=== PATIENT | female | born 1985 | race Caucasian/White ===

== ENCOUNTER 2017-08-25 11:52 | Emergency (ER) | payer SELFPAY ==
[2017-08-25 12:04] VITALS: BMI 20.5
--- NOTE | 2017-08-25 14:22 | PDOC ---
History of Present Illness - General History Source: Patient Exam Limitations: No Limitations - History of Present Illness Initial Comments: 08/25/17 14:23 31 y/o F with no PMHx presents to the ED sent by PCP with tachycardia. Patient reports a cough since last week, with some associated chest discomfort. She currently reports minimal chest pain at rest. At PCP, EKG showed a rate of 128 bpm, so PCP told her to go to the ED for further workup. She states that she becomes very anxious when she goes to the doctor. Patient denies fever, chills, runny nose. Denies nausea, vomiting, diarrhea, abdominal pain. Denies recent weight change, swelling. Denies recent travel. <Usha Moura - Last Filed: 08/25/17 14:23> <Nilesh Serna - Last Filed: 08/25/17 18:44> - General Chief Complaint: Respiratory Stated Complaint: COUGH (PCP SENT) Time Seen by Provider: 08/25/17 13:01 Past History <Usha Moura - Last Filed: 08/25/17 14:23> - Suicide/Smoking/Psychosocial Hx Smoking History: Current some day smoker Have you smoked in the past 12 months: No Information on smoking cessation initiated: No <Nilesh Serna - Last Filed: 08/25/17 18:44> - Past Medical History Allergies/Adverse Reactions: Allergies Allergy/AdvReac Type Severity Reaction Status Date / Time No Known Allergies Allergy Verified 08/25/17 12:00 Home Medications: Ambulatory Orders Doxycycline Monohydrate [Mondoxyne Nl] 100 mg PO BID #14 capsule 08/25/17 Review of Systems - Review of Systems Comments:: 08/25/17 14:23 A complete review of 10 out of 10 review of systems is taken and is negative apart from what is previously mentioned below and in the HPI. <Usha Moura - Last Filed: 08/25/17 14:23> *Physical Exam - Vital Signs Last Vital Signs Temp Pulse Resp BP Pulse Ox 98.7 F 132 H 22 138/88 100 08/25/17 12:00 08/25/17 12:00 08/25/17 12:00 08/25/17 12:00 08/25/17 12:00 - Physical Exam Comments: 08/25/17 14:23 Vitals: Triage Vital signs reviewed General Appearance: no acute distress, well nourished well developed Head: Atraumatic Eyes: Pupils equal reactive round, extraocular movement intact Neck: Supple; No Nucal rigidity Chest Wall: Nontender Cardiac: Regular rate and rhythm, no murmurs, no rubs, no gallops Lungs: Clear to auscultation bilateral, good air movement bilaterally Abdomen: Soft, non distended, normal bowel sounds, non tender to palpation Extremities: Full range of motion to all extremities, no cyanosis, clubbing, or edema Skin: Warm and dry, no rashes or lesions, no rash, no petechiae Neuro: AOX3; Cranial Nerves 2-12 grossly intact, Strength intact to all extremities, Sensation intact to all extremities Psych: normal mood, normal affect <Usha Moura - Last Filed: 08/25/17 14:23> - Vital Signs Last Vital Signs Temp Pulse Resp BP Pulse Ox 98.7 F 132 H 22 138/88 100 08/25/17 12:00 08/25/17 12:00 08/25/17 12:00 08/25/17 12:00 08/25/17 12:00 <Nilesh Serna - Last Filed: 08/25/17 18:44> ED Treatment Course - ADDITIONAL ORDERS Additional order review: Laboratory Results 08/25/17 13:00 Urine HCG, Qual Negative <Usha Moura - Last Filed: 08/25/17 14:23> - LABORATORY CBC & Chemistry Diagram: 08/25/17 14:18 08/25/17 14:18 - ADDITIONAL ORDERS Additional order review: Laboratory Results 08/25/17 13:00 Urine HCG, Qual Negative <Nilesh Serna - Last Filed: 08/25/17 18:44> Medical Decision Making - Medical Decision Making 08/25/17 14:27 1 years old no significant past medical history presents to the emergency department with ten-day history of cough some chest discomfort today she saw her primary care provider and was noted to be tachycardic on examination Her EKG demonstrates sinus tachycardia she has no overt PE or DVT risk factors 08/25/17 18:41 Positive d-dimer CTA ordered No evidence of PE on CTA however CAT scan does demonstrate left lower lobe pneumonia. We'll treat with seven-day course of doxycycline and have patient follow up with primary care provider Findings, the need for follow-up and strict return instructions discussed with patient. <Nilesh Serna - Last Filed: 08/25/17 18:44> *DC/Admit/Observation/Transfer - Attestations Scribe Attestion: 08/25/17 14:24 Documentation prepared by Usha Moura, acting as medical health researcher for Nilesh Serna MD <Usha Moura - Last Filed: 08/25/17 14:23> <Nilesh Serna - Last Filed: 08/25/17 18:44> Diagnosis at time of Disposition: Pneumonia Qualifiers: Pneumonia type: due to unspecified organism Laterality: left Lung location: lower lobe of lung Qualified Code(s): J18.1 - Lobar pneumonia, unspecified organism; J18.1 - Lobar pneumonia, unspecified organism; J18.1 - Lobar pneumonia , unspecified organism - Discharge Dispostion Disposition: HOME Condition at time of disposition: Good - Prescriptions Prescriptions: Doxycycline Monohydrate [Karenne Nl] 100 mg PO BID #14 capsule - Patient Instructions Printed Discharge Instructions: DI for Pneumonia -- Adult Additional Instructions: Drink plenty fluids. [id number] Tylenol as directed on package as needed for pain. Take antibiotic doxycycline as prescribed for treatment of pneumonia. Follow-up with your doctor in 2-3 days. Return to the emergency department for any severe worsening symptoms or for any concerns.
[2017-08-25 14:46] LABS: BASOPHIL 0.2 % (0-2.0); EOSINOPHIL 0.1 % (0-4.5); MCH 27.8 pg (25.7-33.7); MEAN CELL VOLUME 81.6 fl (80-96); MEAN PLT VOLUME 8.3 fl (7.5-11.1); NEUTROPHILS 89.2 % (42.8-82.8); PLATELET COUNT 223 K/MM3 (134-434); RDW 13.2 % (11.6-15.6); WHITE BLOOD COUNT 10.8 K/mm3 (4.0-10.0)
[2017-08-25 15:04] LABS: INR 1.11 (0.82-1.09); PROTHROMBIN TIME (PATIENT) 12.5 SEC (9.98-11.88)
[2017-08-25 15:09] LABS: ALBUMIN 3.5 g/dl (3.4-5.0); ANION GAP 8 (8-16); BILIRUBIN,TOTAL 0.3 mg/dL (0.2-1.0); CALCIUM 8.3 mg/dL (8.5-10.1); CO2 23 mmol/L (21-32); CREATININE 0.6 mg/dL (0.55-1.02); GLUCOSE,RANDOM 92 mg/dL (74-106); SGOT/AST 21 U/L (15-37); SGPT/ALT 25 U/L (12-78); TOT PROT 7.3 g/dl (6.4-8.2)
[2017-08-25 15:10] LABS: CPK 79 IU/L (26-192); MAGNESIUM 2.2 mg/dL (1.8-2.4)
[2017-08-25 15:11] LABS: ALK PHOS 85 U/L (45-117); TROPONIN I < 0.02 ng/ml (0.00-0.05)
[2017-08-25 18:58] VITALS: BP 121/83; PULSE 110; TEMP 99
== END 2017-08-25 18:58 | disposition home or self-care (01) ==
LOC: JER 11:52 → JERFT 11:52 → JER 18:58
DX: J18.1 Lobar pneumonia, unspecified organism (principal)
CPT/HCPCS: 36415; 71275-TC; 80053; 82550; 83735; 84481; 84484; 84703; 85025; 85379; 85610; 99282-25